=== PATIENT | male | born 1965 | race Caucasian/White ===

== ENCOUNTER 2022-12-15 16:26 | Emergency (ER) | payer OTHER ==
[2022-12-15] MEDS ORDERED: Boostrix 0.5 ML (Tdap) VIAL (>/=7 yrs of age) ONE (16:39)
[2022-12-15] MEDS ORDERED: Lidocaine 1% (PF) 30 ML VIAL ONE (16:39)
[2022-12-15] MEDS ORDERED: Bacitracin 1 PK ONE (17:04)
== END 2022-12-15 17:05 | disposition home or self-care (01) ==
LOC: NAV ERS 16:26 → EEVIPCON 16:26 → NAV ERS 17:05
DX: S61.511A Laceration without foreign body of right wrist, initial encounter (principal); Z23 Encounter for immunization; W26.8XXA Contact with other sharp object(s), not elsewhere classified, initial encounter
CPT/HCPCS: 12001; 90471; 90715; J2001